=== PATIENT | female | born 1970 ===

== ENCOUNTER 2017-11-03 10:40 | Emergency (ER) | payer MEDICAID ==
[2017-11-03 10:48] VITALS: TEMP 98.6
--- NOTE | 2017-11-03 11:14 | EDPHY ---
H & P Stated Complaint: bilateral flank pain starting last night Time Seen by Provider: 11/03/17 10:55 HPI/ROS: CHIEF COMPLAINT: Bilateral flank pain HISTORY OF PRESENT ILLNESS: The patient presents to the ED with complaints of an acute exacerbation of chronic bilateral flank pain. The patient denies any nausea, vomiting or diarrhea. She has had the symptoms occurring episodically over the past 5 months. She reportedly has had 2-urinalysis at her primary care provider's office. The patient denies significant past medical history. It sounds as if her primary care provider had contemplated working her up for lupus for evaluation of vague myalgias. The patient is uncertain whether she had any workup performed. The patient denies any dysuria. The patient is somewhat tearful and anxious concerned about the possibility of cancer. She has no prior history of malignancy. She denies fever, weight loss, early satiety or vomiting. REVIEW OF SYSTEMS: A comprehensive 10 point review of systems is otherwise negative aside from elements mentioned in the history of present illness. Source: Patient Exam Limitations: No limitations - Personal History Current Tetanus/Diphtheria Vaccine: Unsure Current Tetanus Diphtheria and Acellular Pertussis (TDAP): Unsure - Medical/Surgical History Hx Asthma: No Hx Chronic Respiratory Disease: No Hx Diabetes: No Hx Cardiac Disease: No Hx Renal Disease: No Hx Cirrhosis: No Hx Alcoholism: No Hx HIV/AIDS: No Hx Splenectomy or Spleen Trauma: No Other PMH: hypothyroid - Social History Smoking Status: Current every day smoker - Physical Exam Exam: General Appearance: Alert, no distress Eyes: Pupils equal and round no pallor or injection ENT, Mouth: Mucous membranes moist Respiratory: There are no retractions, lungs are clear to auscultation Cardiovascular: Regular rate and rhythm Gastrointestinal: Abdomen is soft and nontender, no masses, bowel sounds normal Back: Bilateral mild CVA tenderness Neurological: A&O, normal motor function, normal sensory exam, normal cranial nerves Skin: Warm and dry, no rashes Musculoskeletal: Neck is supple nontender Extremities: symmetrical, full range of motion Constitutional: Initial Vital Signs Temperature (C) 37 C 11/03/17 10:46 Heart Rate 72 11/03/17 10:46 Respiratory Rate 18 11/03/17 10:46 Blood Pressure 137/94 H 11/03/17 10:46 O2 Sat (%) 94 11/03/17 10:46 O2 Delivery Mode Room Air Allergies/Adverse Reactions: No Known Allergies Allergy (Unverified 11/03/17 10:45) Home Medications: Medication Instructions Recorded NK [No Known Home Meds] 11/03/17 Medical Decision Making - Diagnostics Imaging Results: Imaging Impressions Abdomen CT 11/03/17 11:59 Impression: 1. Moderate stool in the colon. 2. Mild bladder wall thickening relative to the degree of distention, which can be seen with inflammation/infection. 3. Adnexal varices, which can be seen in asymptomatic patients as well as patients with pelvic congestion syndrome. 4. Additional findings as above. Findings discussed with Kelby Marley on 11/03/2017 at 1319 hours. ED Course/Re-evaluation: The patient presents to the ED for several months of vague intermittent for pain and urinary frequency. The patient's urinalysis demonstrates no evidence of hematuria or prior your laboratory studies are within normal limits. CT scan of the abdomen pelvis with IV contrast demonstrates no significant abnormality. The patient did receive IV Toradol in the emergency department. At this point time I do not have an obvious explanation for her pain it is certainly likely to be musculoskeletal in nature. I feel that she can continue to use NSAIDs. There has been some discussion of working the patient up for lupus which certainly could be responsible for her symptoms today. I will defer to the patient's primary care provider for further workup of this condition. I re-evaluated the patient at 1:40 p.m. informing her of her workup, laboratory studies, urinalysis and CT scan. Differential Diagnosis: Differential diagnosis considered includes pyelonephritis, ureterolithiasis, mesenteric adenitis, retroperitoneal mass - Data Points Laboratory Results: Laboratory Results 11/03/17 11:30 11/03/17 11:30 11/03/17 11/03/17 11/03/17 11:30 11:30 11:30 WBC 5.64 10^3/uL 10^3/uL (3.80-9.50) RBC 4.47 10^6/uL 10^6/uL (4.18-5.33) Hgb 13.3 g/dL g/dL (12.6-16.3) Hct 40.7 % % (38.0-47.0) MCV 91.1 fL fL (81.5-99.8) MCH 29.8 pg pg (27.9-34.1) MCHC 32.7 g/dL g/dL (32.4-36.7) RDW 10.8 % L % (11.5-15.2) Plt Count 190 10^3/uL 10^3/uL (150-400) MPV 10.4 fL fL (8.7-11.7) Neut % (Auto) 46.9 % % (39.3-74.2) Lymph % (Auto) 40.6 % % (15.0-45.0) Hughes % (Auto) 7.1 % % (4.5-13.0) Eos % (Auto) 4.3 % % (0.6-7.6) Baso % (Auto) 0.9 % % (0.3-1.7) Nucleat RBC Rel Count 0.0 % % (0.0-0.2) Absolute Neuts (auto) 2.65 10^3/uL 10^3/uL (1.70-6.50) Absolute Lymphs (auto) 2.29 10^3/uL 10^3/uL (1.00-3.00) Absolute Monos (auto) 0.40 10^3/uL 10^3/uL (0.30-0.80) Absolute Eos (auto) 0.24 10^3/uL 10^3/uL (0.03-0.40) Absolute Basos (auto) 0.05 10^3/uL 10^3/uL (0.02-0.10) Absolute Nucleated RBC 0.00 10^3/uL 10^3/uL (0-0.01) Immature Gran % 0.2 % % (0.0-1.1) Immature Gran # 0.01 10^3/uL 10^3/uL (0.00-0.10) Sodium 146 mEq/L H mEq/L (135-145) Potassium 4.5 mEq/L mEq/L (3.5-5.2) Chloride 110 mEq/L mEq/L (97-110) Carbon Dioxide 24 mEq/l mEq/l (22-31) Anion Gap 12 mEq/L mEq/L (8-16) BUN 12 mg/dL mg/dL (7-23) Creatinine 0.6 mg/dL mg/dL (0.6-1.0) Estimated GFR > 60 Glucose 82 mg/dL mg/dL (70-100) Calcium 9.4 mg/dL mg/dL (8.5-10.4) Total Bilirubin 0.7 mg/dL mg/dL (0.1-1.4) Conjugated Bilirubin 0.4 mg/dL mg/dL (0.0-0.5) Unconjugated Bilirubin 0.3 mg/dL mg/dL (0.0-1.1) AST 24 IU/L IU/L (14-46) ALT 19 IU/L IU/L (9-52) Alkaline Phosphatase 70 IU/L IU/L (38-126) Total Protein 7.2 g/dL g/dL (6.3-8.2) Albumin 4.0 g/dL g/dL (3.5-5.0) Lipase 79 IU/L IU/L (23-300) Beta HCG, Qual NEGATIVE Urine Color Urine Appearance Urine pH Ur Specific [place] Urine Protein Urine Ketones Urine Blood Urine Nitrate Urine Bilirubin Urine Urobilinogen Ur Leukocyte Esterase Urine RBC Urine WBC Ur Epithelial Cells Hyaline Casts Urine Mucus Urine Glucose 11/03/17 10:55 WBC RBC Hgb Hct MCV MCH MCHC RDW Plt Count MPV Neut % (Auto) Lymph % (Auto) Hughes % (Auto) Eos % (Auto) Baso % (Auto) Nucleat RBC Rel Count Absolute Neuts (auto) Absolute Lymphs (auto) Absolute Monos (auto) Absolute Eos (auto) Absolute Basos (auto) Absolute Nucleated RBC Immature Gran % Immature Gran # Sodium Potassium Chloride Carbon Dioxide Anion Gap BUN Creatinine Estimated GFR Glucose Calcium Total Bilirubin Conjugated Bilirubin Unconjugated Bilirubin AST ALT Alkaline Phosphatase Total Protein Albumin Lipase Beta HCG, Qual Urine Color YELLOW Urine Appearance CLEAR Urine pH 5.0 (5.0-7.5) Ur Specific [place] 1.021 (1.002-1.030) Urine Protein NEGATIVE (NEGATIVE) Urine Ketones NEGATIVE (NEGATIVE) Urine Blood 1+ H (NEGATIVE) Urine Nitrate NEGATIVE (NEGATIVE) Urine Bilirubin NEGATIVE (NEGATIVE) Urine Urobilinogen 2.0 EU H EU (0.2-1.0) Ur Leukocyte Esterase NEGATIVE (NEGATIVE) Urine RBC 1-3 /hpf /hpf (0-3) Urine WBC 1-3 /hpf /hpf (0-3) Ur Epithelial Cells TRACE /lpf /lpf (NONE-1+) Hyaline Casts 1-5 /lpf /lpf (0-1) Urine Mucus TRACE /lpf /lpf (NONE-1+) Urine Glucose NEGATIVE (NEGATIVE) Medications Given: Discontinued Medications Ketorolac Tromethamine (Toradol) 15 mg IVP EDNOW ONE Stop: 11/03/17 13:03 Last Admin: 11/03/17 13:04 Dose: 15 mg Departure - Departure Disposition: Home, Routine, Self-Care Clinical Impression: Back pain Qualifiers: Back pain location: low back pain Chronicity: acute Back pain laterality: bilateral Sciatica presence: without sciatica Qualified Code(s): M54.5 - Low back pain Condition: Good Instructions: Acute Low Back Pain (ED) Additional Instructions: 1. Your CT scan, blood work in urine test all demonstrate no obvious abnormality. 2. Take Ibuprofen or Motrin 600 mg by mouth three times a day. 3. I recommend following up with your primary care provider for further evaluation of your symptoms. 4. Return to the ED for markedly worsening symptoms or other concerns.
[2017-11-03 11:39] LABS: PLATELET COUNT 190 10^3/uL (150-400)
[2017-11-03] MEDS ORDERED: IOPAMIDOL (ISOVUE-300) 100 ML BTL ONE (12:04)
[2017-11-03 12:51] VITALS: O2SAT 95
[2017-11-03] MEDS ORDERED: KETOROLAC 15 MG/1 ML SDV IVP ONE (13:02)
[2017-11-03 13:50] VITALS: BP 130/91; PULSE 63; RESP 16
== END 2017-11-03 13:49 | disposition home or self-care (01) ==
DX: M54.5 Low back pain (principal); F17.200 Nicotine dependence, unspecified, uncomplicated
CPT/HCPCS: 96374; J1885; Q9967